=== PATIENT | male | born 1945 | race American Indian/Alaskan Native ===

== ENCOUNTER 2017-05-17 09:28 | Outpatient (CLI) | payer MEDICARE ==
--- NOTE | 2017-05-17 10:23 | XRay Report ---
AP and lateral of the lumbar spine. Findings: There is mild narrowing of the disc space at L4-5 with early anterior osteophytes. The vertebral body heights are well maintained, and alignment is normal. Bony mineralization is normal. The pedicles are intact. Impression: Mild degenerative disc disease at L4-5.
== END 2017-05-17 09:29 | disposition home or self-care (01) ==
LOC: SPVIMAG 09:28
DX: M51.36 Other intervertebral disc degeneration, lumbar region (principal); M25.78 Osteophyte, vertebrae
CPT/HCPCS: 72100